=== PATIENT | female | born 1985 | race Caucasian/White ===

== ENCOUNTER 2019-03-30 17:57 | Emergency (ER) | payer OTHER ==
[~2019-03-30] VITALS: Ht 165.1 cm; Wt 70.6 kg
[2019-03-30 18:02] VITALS: BP 119/62
== END 2019-03-30 18:43 | disposition home or self-care (01) ==
LOC: ED 18:14
DX: Z48.01 Encounter for change or removal of surgical wound dressing (principal); F17.200 Nicotine dependence, unspecified, uncomplicated
CPT/HCPCS: 99282